=== PATIENT | male | born 1990 | race American Indian/Alaskan Native ===

== ENCOUNTER 2018-02-26 00:41 | Emergency (ER) | payer SELFPAY ==
[2018-02-26 02:33] VITALS: RESP 18
[2018-02-26 02:49] LABS: BASO % 0.5 % (0.0-2.0); EOS # 0.1 K/uL (0.0-0.7); EOS % 1.2 % (0.0-4.0); HEMOGLOBIN 13.2 g/dL (12.0-18.0); LYMPH % 21.2 % (20.0-40.0); MEAN CORPUSCULAR HEMOGLOBIN 31.4 pg (27.0-31.0); MEAN CORPUSCULAR HGB CONC 33.8 g/dL (33.0-37.0); MEAN PLATELET VOLUME 10.3 fL (7.2-11.7); MONO # 0.8 K/uL (0.0-0.8); MONO % 8.5 % (0.0-10.0); NEUT # 6.5 K/uL (1.8-7.0); NEUT % 68.6 % (50.0-75.0); NRBC % 0.1 % (0.0-2.0); RBC 4.21 Mil/uL (4.40-5.90); RED CELL DISTRIBUTION WIDTH 14.3 % (11.5-14.5); URINE BACTERIA RARE (<OCC); URINE BILIRUBIN NEGATIVE (NEGATIVE); URINE BLOOD NEGATIVE (NEGATIVE); URINE CLARITY Clear (Clear); URINE COLOR Yellow (YELLOW); URINE GLUCOSE (UA) NORMAL (Normal); URINE LEUKOCYTE ESTERASE NEG Leu/uL (Negative); URINE PROTEIN NEGATIVE (NEGATIVE); URINE UROBILINOGEN NORMAL mg/dL (0.2-1.0); WHITE BLOOD COUNT 9.4 K/uL (4.8-10.8)
--- NOTE | 2018-02-26 02:54 | C.PDOC ---
History Of Present Illness <Neil Nieves - Last Filed: 02/26/18 02:51> <Diogo Hawkins E - Last Filed: 02/26/18 08:35> 27 y/o male BIB police after bizarre behavior a few hours ago. Patient told police he took "all kinds of street drugs". He was verbally abusive to staff upon arrival. Patient provided no medical complaints. (Neil Nieves Pieter) History Per: Other (Police) History/Exam Limitations: intoxication Onset/Duration Of Symptoms: Hrs Current Symptoms Are (Timing): Still Present Modifying Factor(s): Other ("all kinds of street drugs") Associated Symptoms: Anger, Agitation <Neil Nieves - Last Filed: 02/26/18 02:51> <Diogo Hawkins - Last Filed: 02/26/18 08:35> Time Seen by Provider: 02/26/18 00:58 Chief Complaint (Nursing): Psychiatric Evaluation Past Medical History Family History: States: Unknown Family Hx - Social History Hx Tobacco Use: Yes Hx Alcohol Use: Yes (Daily) Hx Substance Use: Yes (Heroin, Marijuana and cocaine) <Neil Nieves - Last Filed: 02/26/18 02:51> Vital Signs: Last Vital Signs Temp 98.1 F 02/26/18 00:55 Pulse 79 02/26/18 06:39 Resp 18 02/26/18 06:39 BP 142/80 02/26/18 06:39 Pulse Ox 97 02/26/18 06:39 Review Of Systems Except As Marked, All Systems Reviewed And Found Negative. Constitutional: Negative for: Fever Neurological: Positive for: Other Psych: Positive for: Suicidal ideation <Neil Nieves - Last Filed: 02/26/18 02:51> Physical Exam - Physical Exam Appears: Well, No Acute Distress Skin: Normal Color, Warm, Dry Head: Atraumatic, Normacephalic Eye(s): bilateral: Normal Inspection Oral Mucosa: Moist Neck: Normal ROM, Supple Chest: Symmetrical Cardiovascular: Rhythm Regular Respiratory: Normal Breath Sounds, No Rales, No Rhonchi, No Wheezing Gastrointestinal/Abdominal: Normal Exam, Soft, No Tenderness Extremity: Normal ROM Extremity: Bilateral: Atraumatic Pulses: Left Dorsalis Pedis: Normal, Right Dorsalis Pedis: Normal Neurological/Psych: Oriented x3 <EzeuqielNeil Stapleton - Last Filed: 02/26/18 02:51> ED Course And Treatment O2 Sat by Pulse Oximetry: 97 (RA) Pulse Ox Interpretation: Normal <EzequielNeil Stapleton - Last Filed: 02/26/18 02:51> - Laboratory Results Result Diagrams: 02/26/18 02:44 02/26/18 02:44 <Diogo Hawkins - Last Filed: 02/26/18 08:35> Medical Decision Making <Neil Nieves - Last Filed: 02/26/18 02:51> <Doigo Hawkins - Last Filed: 02/26/18 08:35> Medical Decision Making: Impression: 27 y/o male brought in due to bizarre behavior. Patient was loud, agitated and verbally abusive to staff Plan: --Alcohol Serum --CMP --Drug Screen --CBC --UA 01:20 placed 4 point restraints due to safety concern for staff and patient 02:21 given Ativan (2mg) and Geodon Inj (20mg) after being verbally abusive to staff (Neil Nieves) 0830: signed over @ 0700 pt lily birikkirre, admits to street drugs, tox + THC received Geodon and Ativan for Safety seen and examined @ 0700- asleep 0830: awake, alert, coherent. Crisis defers eval this time. (Diogo Hawkins) Disposition <Neil Nieves - Last Filed: 02/26/18 02:51> Doctor Will See Patient In The: Office Counseled Patient/Family Regarding: Studies Performed, Diagnosis - Disposition Disposition Time: 08:35 <Diogo Hawkins - Last Filed: 02/26/18 08:35> - Disposition Disposition: HOME/ ROUTINE Condition: GOOD Forms: [facility] [employer] [facility] (Maltese) - Clinical Impression Clinical Impression: Substance abuse - Scribe Statement The provider has reviewed the documentation as recorded by the Scribe (Lynda Olsen) <Neil Nieves - Last Filed: 02/26/18 02:51> <Diogo Hawkins - Last Filed: 02/26/18 08:35> - Scribe Statement Provider Attestation: All medical record entries made by the Scribe were at my direction and personally dictated by me. I have reviewed the chart and agree that the record accurately reflects my personal performance of the history, physical exam, medical decision making, and the department course for this patient. I have also personally directed, reviewed, and agree with the discharge instructions and disposition. (Neil Nieves)
[2018-02-26 03:00] LABS: ALB/GLOB RATIO 1.3 (1.0-2.1); ALBUMIN 4.2 g/dL (3.5-5.0); ALT/SGPT 17 U/L (21-72); AST/SGOT 23 U/L (17-59); BLOOD UREA NITROGEN 13 mg/dL (9-20); CALCIUM 9.4 mg/dl (8.6-10.4); GFR AFRICAN-AMERICAN > 60; GFR NON-AFRICAN AMERICAN > 60
[2018-02-26 03:09] LABS: BARBITURATES, UR NEGATIVE (NEGATIVE); BENZODIAZEPINES, UR NEGATIVE (NEGATIVE); OPIATES, UR NEGATIVE (NEGATIVE); PHENCYCLIDINE, UR NEGATIVE (NEGATIVE)
[2018-02-26 08:37] VITALS: BP 120/77; PULSE 74; TEMP 97.5; O2SAT 100
== END 2018-02-26 08:58 | disposition home or self-care (01) ==
LOC: C.ER 00:41
DX: F19.10 Other psychoactive substance abuse, uncomplicated (principal)
CPT/HCPCS: 80053; 81001; 85025; 96372; 99284; G0480; J2060; J3486